=== PATIENT | male | born 1990 | race Caucasian/White ===

== ENCOUNTER 2023-12-19 11:04 | Emergency (ER) | payer MEDICAID ==
[~2023-12-19] VITALS: Ht 177.8 cm; Wt 75.7 kg
[2023-12-19 11:11] VITALS: TEMP 98.2
[2023-12-19] MEDS: TETanus/Pertussis (Acell)/Diphther VAC/PF (Tdap-Adult) 0.5ml syringe IMVAC ONE (11:52)
[2023-12-19] MEDS: LIDOcaine 1% W/epiNEPHrine 1:100,000 20ml vial IJ ONE (12:15)
[2023-12-19] MEDS ORDERED: CEPH-585 PO (12:50)
[2023-12-19 13:09] VITALS: BP 130/77; PULSE 56; RESP 16; O2SAT 96
== END 2023-12-19 13:12 | disposition home or self-care (01) ==
LOC: ER 11:06
DX: S00.85XA Superficial foreign body of other part of head, initial encounter (principal); Z88.1 Allergy status to other antibiotic agents; Z79.2 Long term (current) use of antibiotics; Z23 Encounter for immunization; W45.8XXA Other foreign body or object entering through skin, initial encounter; Y93.01 Activity, walking, marching and hiking; Y92.89 Other specified places as the place of occurrence of the external cause; Y99.8 Other external cause status
CPT/HCPCS: 90471; 90715; 99284; A6449

== ENCOUNTER 2024-06-20 06:32 | Emergency (ER) | payer MEDICAID ==
[~2024-06-20] VITALS: Ht 177.8 cm; Wt 84.7 kg
[~2024-06-20 06:32] MED LIST: CEPH-585 PO
[2024-06-20] MEDS ORDERED: HYDROcodone & chlorphen. 10-8mg/5ml oral susp. PO ONE (07:25)
[2024-06-20] MEDS: acetaminophen 325mg tablet PO ONE ×2 (08:14)
[2024-06-20] MEDS: ibuprofen 200mg tablet PO ONE (08:14)
[2024-06-20] MEDS: guaiFENesin 200mg/20mg codeine phos 10ml UD oral syrup PO ONE (08:54)
[2024-06-20] MEDS ORDERED: HYDR473S4 PO (10:12)
[2024-06-20] MEDS ORDERED: AZIT500T9 PO (10:12)
[2024-06-20 10:23] VITALS: BP 124/68; PULSE 80; RESP 18; TEMP 98.9; O2SAT 99
== END 2024-06-20 10:26 | disposition home or self-care (01) ==
LOC: ER 06:33
DX: J20.9 Acute bronchitis, unspecified (principal); B34.9 Viral infection, unspecified; Z88.1 Allergy status to other antibiotic agents; Z79.899 Other long term (current) drug therapy
CPT/HCPCS: 99284